=== PATIENT | female | born 1985 | race African-American/Black ===

== ENCOUNTER 2017-06-15 18:45 | Emergency (ER) | payer OTHER ==
[2017-06-15 18:54] VITALS: BP 129/74; PULSE 85; TEMP 98.2; BMI 34.6
--- NOTE | 2017-06-15 18:55 | PDOC ---
Rapid Medical Evaluation Time Seen by Provider: 06/15/17 18:52 Medical Evaluation: Allergies Allergy/AdvReac Type Severity Reaction Status Date / Time No Known Allergies Allergy Verified 06/15/17 18:51 02 18:52 I have performed a brief in-person evaluation of this patient. The patient presents with a chief complaint of: pain to L foot x 2 days, denies any injury/trauma, denies recent travel/long sedentary periods, denies SOB/CP/ palpitations Pertinent physical exam findings: no calf tenderness, +tenderness to base of 5th metatarsal of L ft I have ordered the following: foot x-ray, urine The patient will proceed to the ED for further evaluation. Discharge Disposition - Diagnosis Left foot pain - Referrals - Patient Instructions - Post Discharge Activity
[2017-06-15] MEDS ORDERED: IBUPROFEN 600 MG TABLET (FP) PO ONE ×2 (19:50→19:51)
--- NOTE | 2017-06-15 19:55 | PDOC ---
History of Present Illness - General Chief Complaint: Pain Stated Complaint: PAIN Time Seen by Provider: 06/15/17 18:52 History Source: Patient Exam Limitations: No Limitations - History of Present Illness Initial Comments: 06/15/17 19:51 Patient is here with complaints of left foot and ankle pain. 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 Denies numbness or tingling to foot, no other injury. Occurred: reports: yesterday Severity: reports: mild, moderate Pain Location: reports: lower extremity (left foot) Modifying Factors: improves with: None Associated Symptoms (Fall): denies symptoms Past History - Travel Traveled outside of the country in the last 30 days: No Close contact w/someone who was outside of country & ill: No - Past Medical History Allergies/Adverse Reactions: Allergies Allergy/AdvReac Type Severity Reaction Status Date / Time No Known Allergies Allergy Verified 06/15/17 18:51 Home Medications: Ambulatory Orders NK [No Known Home Medication] 06/15/17 Asthma: No Cancer: No Cardiac Disorders: No COPD: No Diabetes: No HTN: No Seizures: No Thyroid Disease: No Other medical history: DENIES. - Immunization History Immunization Up to Date: Yes - Suicide/Smoking/Psychosocial Hx Smoking History: Never smoked Have you smoked in the past 12 months: No Number of Cigarettes Smoked Daily: 2 Hx Alcohol Use: No Drug/Substance Use Hx: No Substance Use Type: None Hx Substance Use Treatment: No Trauma Specific PMHX - Complaint Specific PMHX Arthritis: No Back Injury: No Neck Injury: No Review of Systems - Review of Systems Able to Perform ROS?: Yes Is the patient limited Israeli proficient: Yes Constitutional: Yes: Symptoms Reported, See HPI, Malaise HEENTM: No: Symptoms Reported Musculoskeletal: Yes: Symptoms Reported, See HPI, Joint Pain, Joint Swelling Integumentary: Yes: Symptoms Reported, See HPI, Bruising All Other Systems: Reviewed and Negative *Physical Exam - Vital Signs Last Vital Signs Temp Pulse Resp BP Pulse Ox 98.2 F 85 19 129/74 100 06/15/17 18:51 06/15/17 18:51 06/15/17 18:51 06/15/17 18:51 06/15/17 18:51 - Physical Exam General Appearance: Yes: Nourished, Appropriately Dressed, Apparent Distress HEENT: positive: ADRIAN, Normal ENT Inspection, TMs Normal, Pharynx Normal Extremity: positive: Normal Inspection, Tender, Swelling (tenderness along the lateral aspect of left midfoot, no point tenderness to medial or lateral malleolus, no fifth metatarsal or navicular pain, has full range of motion at toes. Has a mild bruising and swelling to the ligamentous area only.) Integumentary: positive: Normal Color Neurologic: positive: tie bucker II-XII NML intact, Fully Oriented, Alert, Normal Mood/ Affect, Normal Response, Motor Strength 08/20 ED Treatment Course - ADDITIONAL ORDERS Additional order review: Laboratory Results 06/15/17 19:10 Urine HCG, Qual Negative Progress Note - Progress Note Progress Note: X-ray negative for fractures or dislocations, will treat with NSAIDs, Ottoniel and Aircast for support, have follow up with Orth O as needed *DC/Admit/Observation/Transfer Diagnosis at time of Disposition: Left ankle sprain Qualifiers: Encounter type: initial encounter Involved ligament of ankle: other ligament Qualified Code(s): S93.492A - Sprain of other ligament of left ankle, initial encounter - Discharge Dispostion Disposition: HOME Condition at time of disposition: Stable Admit: No - Referrals Referrals: Macario Camacho MD [Staff Physician] - - Patient Instructions Printed Discharge Instructions: DI for Foot Sprain Additional Instructions: Rest, ice to area on and off for 15 minutes 4-6 times a day Avoid heavy lifting or exercise until pain and swelling is resolved or until further directed Keep area highly elevated to reduce swelling Use splints/Ottoniel wrap as directed Followup with orthopedist in one to 2 days if not improving, if significantly improved may wait one week for followup with orthopedist May use ibuprofen 2-200 mg tablets every 6 hours as needed for pain - Post Discharge Activity Forms/Work/School Notes: Back to Work
== END 2017-06-15 19:59 | disposition home or self-care (01) ==
LOC: JERFT 18:45
PROC: 2W3RX1Z Immobilization of Left Lower Leg using Splint (ICD-10-PCS; principal; 2017-06-15)
DX: S93.492A Sprain of other ligament of left ankle, initial encounter (principal); X50.1XXA Overexertion from prolonged static or awkward postures, initial encounter; Y93.F2 Activity, caregiving, lifting; Y92.038 Other place in apartment as the place of occurrence of the external cause; Y99.8 Other external cause status
CPT/HCPCS: 73630-TC-LT; 84703; 99282-25

== ENCOUNTER 2019-01-16 18:25 | Emergency (ER) | payer OTHER ==
--- NOTE | 2019-01-16 18:29 | PDOC ---
Rapid Medical Evaluation Time Seen by Provider: 01/16/19 18:27 Medical Evaluation: Allergies Allergy/AdvReac Type Severity Reaction Status Date / Time No Known Allergies Allergy Verified 06/15/17 18:51 01/16/19 18:27 CC: coughing with vocal hoarseness PE: Hoarse voice. No stridor present. OP unremarkable. Lungs CTAB. Orders: nothing Patient to proceed to ER for evaluation. 01/16/19 18:29 Discharge Disposition - Diagnosis Cough - Referrals - Patient Instructions - Post Discharge Activity
[2019-01-16 18:30] VITALS: BP 124/67; PULSE 86; TEMP 98.3; BMI 39.4
--- NOTE | 2019-01-16 20:07 | PDOC ---
History of Present Illness - General Chief Complaint: Cold Symptoms Stated Complaint: Sore Throat Time Seen by Provider: 01/16/19 18:27 - History of Present Illness Initial Comments: 01/16/19 19:59 33 y/o F with raspy voice x4 days no systemic symptoms Past History - Past Medical History Allergies/Adverse Reactions: Allergies Allergy/AdvReac Type Severity Reaction Status Date / Time No Known Allergies Allergy Verified 01/16/19 18:30 Home Medications: Ambulatory Orders NK [No Known Home Medication] 06/15/17 Asthma: No Cancer: No Cardiac Disorders: No COPD: No Diabetes: No HTN: No Seizures: No Thyroid Disease: No - Immunization History Immunization Up to Date: Yes - Psycho Social/Smoking Cessation Hx Smoking History: Never smoked Have you smoked in the past 12 months: No Number of Cigarettes Smoked Daily: 2 Information on smoking cessation initiated: No Hx Alcohol Use: No Drug/Substance Use Hx: No Substance Use Type: None Hx Substance Use Treatment: No Review of Systems - Review of Systems Constitutional: No: Fever HEENTM: Yes: See HPI *Physical Exam - Vital Signs Last Vital Signs Temp Pulse Resp BP Pulse Ox 98.3 F 86 18 124/67 99 01/16/19 18:27 01/16/19 18:27 01/16/19 18:27 01/16/19 18:27 01/16/19 18:27 - Physical Exam Comments: 01/16/19 19:59 HEAD: NC/AT EYES: Conjuntiva clear Ears: Canals and TM's normal NOSE: No d/c THROAT: Moist mucous membrances, oral pharanx clear, uvula midline NECK: Supple without adenopathy CARDIAC: S1 S2 LUNGS: CTA Full and Equal breath sounds ABDOMEN: Soft NT ND MS: Full ROM in all joints without edema NEUROLOGIC: No gross sensory or motor deficits, NVID SKIN: Normal color and temperature no lesions or rashes Medical Decision Making - Medical Decision Making 01/16/19 20:07 decdron and supportive care for laryngitis Discharge - Discharge Information Problems reviewed: Yes Clinical Impression/Diagnosis: Cough, Laryngitis Condition: Stable Disposition: HOME - Admission No - Follow up/Referral Referrals: Lloyd Dowling MD [Staff Physician] - - Patient Discharge Instructions Additional Instructions: Return to the emergency room should symptoms worsen. Please without fail follow up with ENT in 1-2 days for further evaluation and treatment options. Tylenol and motrin as directed for discomfort. - Post Discharge Activity
[2019-01-16] MEDS ORDERED: DEXAMETHASONE SOD PHOSPHATE 10 MG/1 ML VIAL ONE (20:11)
[2019-01-16] MEDS ORDERED: DEXAMETHASONE LIQUID 0.5 MG/5 ML PO ONE (20:11)
== END 2019-01-16 20:17 | disposition home or self-care (01) ==
LOC: JER 18:25 → JERFT 18:25
DX: R05 Cough (principal); J04.0 Acute laryngitis
CPT/HCPCS: 99281-25

== ENCOUNTER 2019-02-10 10:24 | Emergency (ER) | payer OTHER ==
[2019-02-10 10:34] VITALS: BP 123/64; PULSE 85; TEMP 98.4; BMI 39.4
--- NOTE | 2019-02-10 10:58 | PDOC ---
History of Present Illness - General History Source: Patient Exam Limitations: No Limitations <LiuGriselda - Last Filed: 02/10/19 12:12> <Gisela Ruelas - Last Filed: 02/11/19 16:16> - General Chief Complaint: Pain Stated Complaint: RT LEG PAIN Time Seen by Provider: 02/10/19 10:37 Past History - Past Medical History Asthma: No Cancer: No Cardiac Disorders: No COPD: No Diabetes: No HTN: No Seizures: No Thyroid Disease: No - Immunization History Immunization Up to Date: Yes - Psycho Social/Smoking Cessation Hx Smoking History: Never smoked Have you smoked in the past 12 months: No Number of Cigarettes Smoked Daily: 2 Hx Alcohol Use: No Drug/Substance Use Hx: No Substance Use Type: None Hx Substance Use Treatment: No <Griselda Hatfield - Last Filed: 02/10/19 12:12> <Gisela Ruelas - Last Filed: 02/11/19 16:16> - Past Medical History Allergies/Adverse Reactions: Allergies Allergy/AdvReac Type Severity Reaction Status Date / Time No Known Allergies Allergy Verified 02/10/19 10:28 Home Medications: Ambulatory Orders Diclofenac Sodium 75 mg PO BID PRN #28 tablet. 02/10/19 Ibuprofen 1 tab PO ONCE 02/10/19 *Physical Exam - Vital Signs Last Vital Signs Temp Pulse Resp BP Pulse Ox 98.4 F 85 18 123/64 99 02/10/19 10:32 02/10/19 10:32 02/10/19 10:32 02/10/19 10:32 02/10/19 10:32 - Physical Exam General Appearance: No: Apparent Distress Respiratory/Chest: positive: Lungs Clear, Normal Breath Sounds. negative: Respiratory Distress Cardiovascular: positive: Regular Rhythm, Regular Rate, S1, S2. negative: Murmur Extremity: positive: Normal Capillary Refill, Normal Range of Motion, Other ( minimal 1+ edema of RLE, no calf tenderness, FROM of R knee, no TTP along R knee joint, normal skin color, RLE neurovascularly intact). negative: Calf Tenderness Integumentary: positive: Normal Color. negative: Erythema, Ecchymosis, Bruising Neurologic: positive: Alert, Normal Mood/Affect <Griselda Hatfield - Last Filed: 02/10/19 12:12> - Vital Signs Last Vital Signs Temp Pulse Resp BP Pulse Ox 98.4 F 85 18 123/64 99 02/10/19 10:32 02/10/19 10:32 02/10/19 10:32 02/10/19 10:32 02/10/19 10:32 <Gisela Ruelas - Last Filed: 02/11/19 16:16> ED Treatment Course - RADIOLOGY Radiology Studies Ordered: Category Date Time Status DUPLEX VASCUL US-1 LEG [US] Stat Ultrasound 02/10/19 10:46 Ordered <Griselda Hatfield - Last Filed: 02/10/19 12:12> Medical Decision Making - Medical Decision Making 33 y/o F with no sig pmh presents with pain behind R knee from yesterday. Denies trauma. 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 Denies prior knee issues. Denies fever, sob, cp, numbness/tingling, change in color of extremities. Is on Depo; last received the shot 2 months ago. Denies recent travel, recent surgeries. Consider king's cyst vs DVT Plan: RLE US 02/10/19 10:57 Ultrasound shows no evidence of DVT No evidence of king's cyst reported Stable for dc with PCP f/u 02/10/19 12:12 <Griselda Hatfield - Last Filed: 02/10/19 12:12> - Medical Decision Making The patient was seen and evaluated in conjunction with midlevel provider under my direct supervision, ancillary studies were reviewed. I agree with the plan as outlined with DAILY Hatfield. HPI, workup/dispo as outlined. VS reviewed, wnl. no DVT or king's cyst on duplex, anticipate discharge, pcp followup, return precautions return in 1 week for repeat imaging if persistent/worsening sx. 02/11/19 16:15 02/11/19 16:16 <Gisela Ruelas - Last Filed: 02/11/19 16:16> Discharge - Discharge Information Problems reviewed: Yes - Admission No - Additional Discharge Information Prescription Drug Monitoring Program (I-STOP) results: I-STOP not reviewed <Griselda Hatfield - Last Filed: 02/10/19 12:12> <Gisela Ruelas - Last Filed: 10/27/19 16:16> - Discharge Information Clinical Impression/Diagnosis: Knee pain Qualifiers: Chronicity: acute Laterality: right Qualified Code(s): M25.561 - Pain in right knee Condition: Stable Disposition: HOME - Additional Discharge Information Prescriptions: Diclofenac Sodium 75 mg PO BID PRN #28 tablet.dr SARKAR Reason: Pain - Patient Discharge Instructions Patient Printed Discharge Instructions: DI for Knee Pain Additional Instructions: Thank you for choosing [facility]. It was a pleasure taking care of you. Your ultrasound showed no evidence of clot in your leg. You may take Diclofenac twice a day as needed for pain. Take with food. Follow-up with your regular doctor for further evaluation Return to the Emergency Department if your symptoms worsen or persist, you have fever, shortness of breath, chest pain, calf pain or other concerning symptoms.
== END 2019-02-10 12:48 | disposition home or self-care (01) ==
LOC: JER 10:24
DX: M25.561 Pain in right knee (principal)
CPT/HCPCS: 93971-TC; 99282-25

== ENCOUNTER 2019-04-15 13:56 | Emergency (ER) | payer OTHER ==
[2019-04-15 14:05] VITALS: BMI 27.3
--- NOTE | 2019-04-15 14:05 | PDOC ---
History of Present Illness - General Chief Complaint: Pain, Acute Stated Complaint: ABD/PAIN - History of Present Illness Initial Comments: The pt is a 33F w/ no reported PMH who presents for evaluation of abdominal pain for 3 hours. The pain is suprapubic, sharp, constant, non-radiating, worse with stretching/touch, and not alleviated by anything she can identify. She endorses nausea, NBNB vomiting, and tenesmus. She also reports vaginal spotting since (4 days). She states she was on depot shots but missed her last one in Feb. She states she took a test at home that was negative. She denies fevers/chills, chest pain, trouble breathing, diarrhea, blood in her urine or stool, dysuria, or changes in sensation. 04/15/19 14:23 Past History - Past Medical History Allergies/Adverse Reactions: Allergies Allergy/AdvReac Type Severity Reaction Status Date / Time No Known Allergies Allergy Verified 04/15/19 14:01 Home Medications: Ambulatory Orders Diclofenac Sodium 75 mg PO BID PRN #28 tablet. 02/10/19 Ibuprofen 1 tab PO ONCE 02/10/19 Ibuprofen 600 mg PO Q6H PRN #30 tablet 04/15/19 Asthma: No Cancer: No Cardiac Disorders: No COPD: No Diabetes: No HTN: No Seizures: No Thyroid Disease: No - Immunization History Immunization Up to Date: Yes - Psycho Social/Smoking Cessation Hx Smoking History: Never smoked Have you smoked in the past 12 months: No Number of Cigarettes Smoked Daily: 2 Hx Alcohol Use: No Drug/Substance Use Hx: No Substance Use Type: None Hx Substance Use Treatment: No Review of Systems - Review of Systems Able to Perform ROS?: Yes Comments:: GENERAL/CONSTITUTIONAL: No fever or chills. No weakness HEAD, EYES, EARS, NOSE AND THROAT: No change in vision. No change in hearing. No sore throat CARDIOVASCULAR: No chest pain or shortness of breath RESPIRATORY: Denies cough, hemoptysis GASTROINTESTINAL: No diarrhea or constipation GENITOURINARY: No dysuria, frequency, or change in urination MUSCULOSKELETAL: No joint or muscle swelling or pain. No neck or back pain SKIN: No rash NEUROLOGIC: No headache, vertigo, loss of consciousness, or change in strength/ sensation ENDOCRINE: No increased thirst. No abnormal weight change HEMATOLOGIC/LYMPHATIC: No anemia, easy bleeding, or history of blood clots ALLERGIC/IMMUNOLOGIC: No hives or skin allergy 04/15/19 14:04 Is the patient limited Syrian proficient: No *Physical Exam - Vital Signs Initial Vital Signs Temp Pulse Resp BP Pulse Ox 98.1 F 106 H 22 H 143/86 99 04/15/19 14:00 04/15/19 14:00 04/15/19 14:00 04/15/19 14:00 04/15/19 14:00 04/15/19 15:15 - Physical Exam GENERAL: Awake, alert, and oriented to person/place/time, pt tearful HEAD: No signs of trauma, normocephalic, atraumatic EYES: PERRLA, EOMI, sclera anicteric, conjunctiva clear ENT: Hearing grossly normal, nares patent, oropharynx clear without exudates. Moist mucosa LUNGS: No distress, speaks in full sentences, clear to auscultation bilaterally HEART: Tachycardic rate and regular rhythm, normal S1 and S2, no murmurs appreciated, peripheral pulses normal and equal bilaterally ABDOMEN: Soft, protuberant, suprapubic TTP w/o rebound or guarding, normoactive bowel sounds EXTREMITIES: Normal inspection, Normal range of motion, no edema. No clubbing or cyanosis_ NEUROLOGICAL: Cranial nerves II through XII grossly intact. Normal speech, no focal sensorimotor deficits SKIN: Warm, Dry PELVIC: External genitalia unremarkable. Speculum exam with small amount of blood in vaginal canal, no clot observed Vaginal wall mucosa is unremarkable Cervix closed Bimanual exam without cervical motion tenderness, adnexal tenderness or any masses appreciated. 04/15/19 14:05 ED Treatment Course - LABORATORY CBC & Chemistry Diagram: 04/15/19 14:35 04/15/19 14:35 - RADIOLOGY Radiograph Interpretation: US/TRANSVAGINAL ULTRASOUND US The uterus measures 9.1 x 4.3 x 4.7 cm. The endometrium measures 0.2 cm in AP dimension. The right ovary measures 3.4 x 2.3 x 2.9 cm.. Including a 2.6 cm simple right ovarian cyst The left ovary was not visualized Doppler examination unremarkable There are no adnexal masses. There is no free fluid in the pelvis. IMPRESSION 2.6 cm simple right ovarian cyst. Recommend 3 month follow-up. 04/15/19 15:48 Medical Decision Making - Medical Decision Making The pt is a 33F w/ no reported PMH who presents for evaluation of abdominal pain for 3 hours. Ddx: appendicitis, ruptured ovarian cyst, fibroids, consider ectopic, ovarian torsion, not likely nephrolithiasis or bowel perforation ED Course CMP, CBC, T/s, Coags IVF, ofirmev, zofran, and morphine for symptomatic relief CT A&P w/ IV contrast TVUS 04/15/19 14:28 Pt w/ persistent pain, will give dilauded 1mg IV once Pain improved No leukcytosis No anemia Lytes unremarkable No LC LFTs wnl Serum preg neg 04/15/19 15:17 US notable for a 2.5cm L ovarian cyst CT A&P w/o acute pathology Pt feels improved at this time and is tolerating PO in ED Plan for D/C w/ PCP f/u Discharge instructions and return precautions given Patient in agreement and verbalized understanding Dispo: Home 04/15/19 17:08 Discharge - Discharge Information Problems reviewed: Yes Clinical Impression/Diagnosis: Abdominal pain Qualifiers: Abdominal location: lower abdomen, unspecified Qualified Code(s): R10.30 - Lower abdominal pain, unspecified Condition: Improved Disposition: HOME - Admission No - Follow up/Referral - Patient Discharge Instructions Patient Printed Discharge Instructions: DI for Ovarian Cyst Additional Instructions: You were seen in the Emergency Department for evaluation of abdominal pain. Your imaging was significant for an ovarian cyst. Your labs and CT scan were unremarkable. Your pain may be related to the cyst or possibly your menstrual cycle. Review the handout provided at discharge. Follow up with your primary care provider within a week. Follow up with your OBGYN within a week. For pain you may take Tylenol 650mg every 6 hours and Ibuprofen 600mg every 6-8 hours, alternating them each time. Return to the Emergency Department if you develop fevers, chest pain, trouble breathing, worsening pain, change in sensation, worsening symptoms, or any new/ concerning symptoms. - Post Discharge Activity
--- NOTE | 2019-04-15 14:06 | PDOC ---
Attending Attestation - Resident Resident Name: Mike Hwang - ED Attending Attestation I have performed the following: I have examined & evaluated the patient, The case was reviewed & discussed with the resident, I agree w/resident's findings & plan - HPI HPI: 04/15/19 15:13 33F w/ no reported PMH who presents for evaluation of lower abdominal pain for 3 hours. The pain is suprapubic, sharp, constant, non-radiating, worse with stretching/touch, and not alleviated by anything she can identify. She endorses nausea, NBNB vomiting denies intercourse or trauma. She also reports intermittent vaginal spotting x4 days She states she was on depot shots but missed her last one in Nov. She states she took a test at home that was negative. She denies fevers/chills, chest pain, trouble breathing, diarrhea, blood in her urine or stool, dysuria, or changes in sensation. - Physicial Exam PE: 04/15/19 14:06 Agree with the resident's HPI and PE as documented in the electronic medical record. NAD, well appearing, EOMI, PERRL, nl conjunctiva, anicteric; neck supple. lungs clear, RRR, abdomen soft nontender. No rebound, no guarding. Back nontender. PEREZ x4, no focal neuro deficits. No peripheral edema. normal color for ethnicity , WWP. pelvic exam chaperoned with resident Dr Hwang - scant blood in the vault and os, smooth pink cervix, no adnexal tenderness, pt very uncomfortable and tensing up/spasms with the pelvic exam. no CMT 04/15/19 15:14 - Medical Decision Making 04/15/19 14:06 Vital Signs Temp Pulse Resp BP Pulse Ox 98.1 F 106 H 22 H 143/86 99 04/15/19 14:00 04/15/19 14:00 04/15/19 14:00 04/15/19 14:00 04/15/19 14:00 vitals notable for tachycardia, but also in severe pain ddx. fibroid uterus, DUB, ovarian cyst, cyst rupture, torsion. appy, UTI, pyelonephritis, pelvic congestion, STI. given antiemetics, IVF, morphine --> dilaudid for pain control. bedside fast exam neg for FF CT a/p to eval for intra abdominal pathology, TVUS for cyst/ovarian, rupture, torsion 04/15/19 16:55 right ovarian cyst, no torsion. 2.6cm CT a/p unremarkable, no pathology noted. pain controlled repeat VS improved, no longer tachy, HD appropriate. ambulatory, [facility] PO intake. discharge stable condition, nsaids for pain relief. [employer] referral, instructed to get her depo shot she missed, likely contributing to her current sx/DUB, pt made aware of impression and plan, agreeable. 04/16/19 17:18 04/16/19 17:19
[2019-04-15] MEDS ORDERED: ONDANSETRON 4 MG/2 ML VIAL IVPUSH ONE (14:20)
[2019-04-15] MEDS ORDERED: SODIUM CHLORIDE 0.9% 500 ML INFUS.BAG IV ONE (14:20)
[2019-04-15] MEDS ORDERED: ACETAMINOPHEN 1000 MG/100 ML VIAL (NON FORMULARY) IVPB ONE (14:20)
[2019-04-15] MEDS ORDERED: morphine CARPU-JECT 4 MG/1 ML DISP.SYRIN IVPUSH ONE (14:20)
[2019-04-15] MEDS ORDERED: MORPHINE SULFATE 2 MG/ML VIAL ONE (14:27)
[2019-04-15] MEDS ORDERED: ACETAMINOPHEN INJECTION 100 ML IVPB ONE (14:27)
[2019-04-15] MEDS ORDERED: ONDANSETRON 4 MG/2 ML VIAL ONE (14:28)
[2019-04-15 14:45] LABS: BASO % 0.3 % (0-2.0); EOS % 0.8 % (0-4.5); HEMATOCRIT 39.1 % (32.4-45.2); HEMOGLOBIN 12.4 GM/dL (10.7-15.3); LYMPH % 16.8 % (8-40); MCH 24.9 pg (25.7-33.7); MCHC 31.6 g/dl (32.0-36.0); MEAN CELL VOLUME 78.7 fl (80-96); MEAN PLT VOLUME 9.3 fl (7.5-11.1); NEUT % 75.1 % (42.8-82.8); PLATELET COUNT 232 K/MM3 (134-434); RBC 4.97 M/mm3 (3.60-5.2); RDW 14.6 % (11.6-15.6); WHITE BLOOD COUNT 9.9 K/mm3 (4.0-10.0)
[2019-04-15] MEDS ORDERED: HYDROmorphone HCL CARPU-JECT 2 MG/1 ML DISP.SYRIN IVPUSH ONE (14:54)
[2019-04-15] MEDS ORDERED: HYDROmorphone HCl 2 MG/ML VIAL ONE (15:00)
[2019-04-15 15:02] LABS: INR 1.03 (0.83-1.09); PROTHROMBIN TIME (PATIENT) 12.2 SEC (9.7-13.0)
[2019-04-15 15:05] LABS: ACTIVATED PTT 26.8 SECONDS (25.2-36.5)
[2019-04-15 15:13] LABS: ALBUMIN 3.9 g/dl (3.4-5.0); BILIRUBIN,TOTAL 0.3 mg/dL (0.2-1); CALCIUM 9.5 mg/dL (8.5-10.1); CREATININE 0.8 mg/dL (0.55-1.3); POTASSIUM 3.8 mmol/L (3.5-5.1); TOT PROT 8.3 g/dl (6.4-8.2)
[2019-04-15] MEDS ORDERED: METOCLOPRAMIDE HCL INJECTION 10 MG/2 ML VIAL IVPB ONE (15:34)
[2019-04-15] MEDS ORDERED: METOCLOPRAMIDE HCL INJECTION 10 MG/2 ML VIAL ONE (16:39)
[2019-04-15 17:30] VITALS: BP 113/58; PULSE 60; TEMP 98
== END 2019-04-15 17:30 | disposition home or self-care (01) ==
LOC: JER 13:56
PROC: 3E033NZ Introduction of Analgesics, Hypnotics, Sedatives into Peripheral Vein, Percutaneous Approach (ICD-10-PCS; principal; 2019-04-15)
PROC: 3E033GC Introduction of Other Therapeutic Substance into Peripheral Vein, Percutaneous Approach (ICD-10-PCS; 2019-04-15)
DX: R10.30 Lower abdominal pain, unspecified (principal); N83.201 Unspecified ovarian cyst, right side
CPT/HCPCS: 36415; 74177-TC; 76830-TC; 80053; 84703; 85025; 85610; 85730; 86850; 86900; 86901; 96374; 96375; 99283-25; J0131; Q9967

== ENCOUNTER 2021-01-28 10:21 | Emergency (ER) | payer OTHER ==
[2021-01-28 10:34] VITALS: BP 121/70; PULSE 70; TEMP 98.1; BMI 41.9
[2021-01-28] MEDS ORDERED: KETOROLAC TROMETHAMINE 30 MG/1 ML VIAL IM ONE (11:05)
[2021-01-28] MEDS ORDERED: KETOROLAC TROMETHAMINE 30 MG/1 ML VIAL ONE (11:19)
== END 2021-01-28 12:38 | disposition home or self-care (01) ==
LOC: JERFT 10:21
PROC: 3E0233Z Introduction of Anti-inflammatory into Muscle, Percutaneous Approach (ICD-10-PCS; principal; 2021-01-28)
DX: M79.671 Pain in right foot (principal); M54.50 Low back pain, unspecified; R51.9 Headache, unspecified; V43.62XA Car passenger injured in collision with other type car in traffic accident, initial encounter
CPT/HCPCS: 73610-TC-RT-FY; 73630-TC-RT-FY; 99284-25

== ENCOUNTER 2021-03-04 09:14 | Emergency (ER) | payer OTHER ==
[2021-03-04 09:21] VITALS: BP 134/65; PULSE 81; TEMP 98.9; BMI 39.3
[2021-03-04] MEDS ORDERED: IBUPROFEN 600 MG TABLET (FP) PO ONE ×2 (10:08→10:26)
[2021-03-04] MEDS ORDERED: DEXAMETHASONE LIQUID 0.5 MG/5 ML PO ONE (10:08)
[2021-03-04] MEDS ORDERED: DEXAMETHASONE SOD PHOSPHATE 10 MG/1 ML VIAL ONE (10:26)
== END 2021-03-04 10:56 | disposition home or self-care (01) ==
LOC: JER 09:14
DX: J02.9 Acute pharyngitis, unspecified (principal); B00.1 Herpesviral vesicular dermatitis; Z11.52 Encounter for screening for COVID-19
CPT/HCPCS: 87651; 99283-25; C9803; U0003; U0005

== ENCOUNTER 2021-10-03 03:05 | Emergency (ER) | payer OTHER ==
[2021-10-03 03:09] VITALS: BP 124/74; PULSE 79; TEMP 98.1; BMI 35.4
[2021-10-03] MEDS ORDERED: ACETAMINOPHEN 500 MG TABLET (FP) PO ONE (03:49)
[2021-10-03] MEDS ORDERED: ACETAMINOPHEN 325 MG TABLET (FP) ONE (03:51)
== END 2021-10-03 05:15 | disposition home or self-care (01) ==
LOC: JER 03:05
DX: S00.83XA Contusion of other part of head, initial encounter (principal); Y04.8XXA Assault by other bodily force, initial encounter
CPT/HCPCS: 70450-TC; 70486-TC; 72125-TC; 99284-25

== ENCOUNTER 2021-10-07 17:34 | Emergency (ER) | payer OTHER ==
[2021-10-07 17:41] VITALS: BP 121/78; PULSE 68; TEMP 98.8; BMI 33.5
[2021-10-07] MEDS ORDERED: SODIUM CHLORIDE 0.9% 500 ML INFUS.BAG IV ONE (18:25)
[2021-10-07] MEDS ORDERED: KETOROLAC TROMETHAMINE 30 MG/1 ML VIAL IVPUSH ONE (18:25)
[2021-10-07] MEDS ORDERED: KETOROLAC TROMETHAMINE 30 MG/1 ML VIAL ONE (18:37)
[2021-10-07] MEDS ORDERED: METOCLOPRAMIDE HCL INJECTION 10 MG/2 ML VIAL ONE (18:41)
[2021-10-07] MEDS ORDERED: METOCLOPRAMIDE HCL INJECTION 10 MG/2 ML VIAL IVPUSH ONE (18:53)
== END 2021-10-07 21:13 | disposition home or self-care (01) ==
LOC: JERFT 17:34
PROC: 3E033GC Introduction of Other Therapeutic Substance into Peripheral Vein, Percutaneous Approach (ICD-10-PCS; principal; 2021-10-07)
DX: R51.9 Headache, unspecified (principal)
CPT/HCPCS: 99284-25

== ENCOUNTER 2021-12-10 17:21 | Emergency (ER) | payer OTHER ==
[2021-12-10 17:29] VITALS: BP 122/76; PULSE 74; RESP 18; TEMP 97; BMI 37.0
== END 2021-12-10 18:49 | disposition home or self-care (01) ==
LOC: JERFT 17:21
DX: S40.861A Insect bite (nonvenomous) of right upper arm, initial encounter (principal); W57.XXXA Bitten or stung by nonvenomous insect and other nonvenomous arthropods, initial encounter
CPT/HCPCS: 99281-25

== ENCOUNTER 2022-05-09 16:51 | Emergency (ER) | payer OTHER ==
[2022-05-09 17:00] VITALS: BP 151/78; PULSE 76; RESP 18; TEMP 98.4; BMI 33.0
== END 2022-05-09 18:46 | disposition home or self-care (01) ==
LOC: JERFT 16:51
DX: H00.015 Hordeolum externum left lower eyelid (principal); J01.00 Acute maxillary sinusitis, unspecified
CPT/HCPCS: 99281-25

== ENCOUNTER 2022-08-21 09:29 | Emergency (ER) | payer OTHER ==
[2022-08-21 09:39] VITALS: BP 128/82; PULSE 81; RESP 18; TEMP 98.3; BMI 34.0
[2022-08-21] MEDS ORDERED: ACETAMINOPHEN 500 MG TABLET (FP) PO ONE (09:51)
[2022-08-21] MEDS ORDERED: ACETAMINOPHEN 500 MG TABLET (FP) ONE (09:55)
[2022-08-21] MEDS ORDERED: KETOROLAC TROMETHAMINE 30 MG/1 ML VIAL IM ONE (11:27)
[2022-08-21] MEDS ORDERED: KETOROLAC TROMETHAMINE 30 MG/1 ML VIAL ONE (11:28)
== END 2022-08-21 11:45 | disposition home or self-care (01) ==
LOC: JER 09:29
PROC: 3E0233Z Introduction of Anti-inflammatory into Muscle, Percutaneous Approach (ICD-10-PCS; principal; 2022-08-21)
DX: S00.83XA Contusion of other part of head, initial encounter (principal); R51.9 Headache, unspecified; R68.84 Jaw pain; T71.193A Asphyxiation due to mechanical threat to breathing due to other causes, assault, initial encounter; Y04.2XXA Assault by strike against or bumped into by another person, initial encounter
CPT/HCPCS: 70450-TC; 70486-TC; 71046-TC-FY; 72125-TC; 84703; 99285-25

== ENCOUNTER 2022-10-23 17:09 | Emergency (ER) | payer OTHER ==
[2022-10-23 17:15] VITALS: BP 108/70; PULSE 80; RESP 18; TEMP 97.9; BMI 34.3
[2022-10-23] MEDS ORDERED: SODIUM CHLORIDE 0.9% 500 ML INFUS.BAG IV ONE (17:49)
[2022-10-23] MEDS ORDERED: ONDANSETRON 4 MG/2 ML VIAL IVPUSH ONE (17:49)
[2022-10-23] MEDS ORDERED: METOCLOPRAMIDE HCL INJECTION 10 MG/2 ML VIAL IVPUSH ONE (17:50)
[2022-10-23] MEDS ORDERED: ONDANSETRON 4 MG/2 ML VIAL ONE (18:06)
[2022-10-23] MEDS ORDERED: METOCLOPRAMIDE HCL INJECTION 10 MG/2 ML VIAL ONE (18:06)
[2022-10-23 18:44] LABS: HEMATOCRIT 38.4 % (32.4-45.2); HEMOGLOBIN 12.5 GM/dL (10.7-15.3); MCH 25.2 pg (25.7-33.7); MCHC 32.5 g/dl (32.0-36.0); MEAN CELL VOLUME 77.7 fl (80-96); MEAN PLT VOLUME 9.6 fl (7.5-11.1); PLATELET COUNT 219 10^3/uL (134-434); RBC 4.94 M/mm3 (3.60-5.2); RDW 14.3 % (11.6-15.6); WHITE BLOOD COUNT 7.7 K/mm3 (4.0-10.0)
[2022-10-23] MEDS ORDERED: ACETAMINOPHEN 500 MG TABLET (FP) PO ONE (18:51)
[2022-10-23 19:04] LABS: CHLORIDE 106 mmol/L (98-107); SODIUM 136 mmol/L (136-145)
[2022-10-23 19:08] LABS: ALBUMIN 3.9 g/dl (3.4-5.0); ANION GAP 6 MMOL/L (8-16); CALCIUM 9.2 mg/dL (8.5-10.1); CO2 24 mmol/L (21-32); GLUCOSE,RANDOM 120 mg/dL (74-106)
[2022-10-23 19:09] LABS: BLOOD UREA NITROGEN 6.4 mg/dL (7-18)
[2022-10-23 19:11] LABS: CREATININE 0.8 mg/dL (0.55-1.3)
[2022-10-23 19:12] LABS: SGOT/AST 46 U/L (15-37); SGPT/ALT 25 U/L (13-61)
[2022-10-23 19:13] LABS: BILIRUBIN,TOTAL 0.4 mg/dL (0.2-1); TOT PROT 8.2 g/dl (6.4-8.2)
[2022-10-23 19:14] LABS: ALK PHOS 50 U/L (45-117)
[2022-10-23] MEDS ORDERED: ACETAMINOPHEN 500 MG TABLET (FP) ONE (20:19)
== END 2022-10-23 20:23 | disposition home or self-care (01) ==
LOC: JER 17:09
PROC: 3E033GC Introduction of Other Therapeutic Substance into Peripheral Vein, Percutaneous Approach (ICD-10-PCS; principal; 2022-10-23)
PROC: 3E033GC Introduction of Other Therapeutic Substance into Peripheral Vein, Percutaneous Approach (ICD-10-PCS; 2022-10-23)
DX: S09.90XA Unspecified injury of head, initial encounter (principal); R51.9 Headache, unspecified; R42 Dizziness and giddiness; R11.10 Vomiting, unspecified; V49.40XA Driver injured in collision with unspecified motor vehicles in traffic accident, initial encounter; Y93.I9 Activity, other involving external motion
CPT/HCPCS: 36415; 70450-TC; 80053; 82550; 82553; 84484; 84702; 85027; 93005; 93010; 99285-25